=== PATIENT | female | born 1990 | race Caucasian/White ===

== ENCOUNTER 2017-07-13 01:42 | Observation (INO) ==
[2017-07-13 02:38] LABS: Bilirubin,Urine Negative (Negative); Blood,Urine Negative (Negative); Clarity,Urine Cloudy (Clear); Color,Urine Dark Yellow (Yellow); Glucose,Urine (UA) Normal (Normal); Ketones,Urine Negative (Negative); Leukocyte Esterase,Urine Negative (Negative); Nitrite,Urine Negative (Negative); Protein,Urine Trace mg/dL (Neg-Trace); Specific Gravity,Urine 1.026 (1.010-1.025); Urobilinogen,Urine Normal (Normal)
[2017-07-13 02:40] LABS: Bacteria,Urine Moderate per hpf (None-Few); Squamous Epithelial Cell,Urine Many per lpf (None-Few)
[2017-07-13 02:53] LABS: Hyaline Casts,Urine None Seen per lpf (None-Few); Mucus,Urine Few (Few); RBC,Urine 0-3 per hpf (0-3)
[2017-07-13 04:07] LABS: Amphetamine Screen,Urine Negative ng/mL (Cutoff=1000); Barbiturate Screen,Urine Negative ng/mL (Cutoff=200); Benzodiazepines Screen,Urine Negative ng/mL (Cutoff=200); Cannabinoid Screen,Urine Negative ng/mL (Cutoff = 50); Cocaine Screen,Urine Negative ng/mL (Cutoff= 300); Opiate Screen,Urine Negative ng/mL (Cutoff=300); Phencyclidine Screen,Urine Negative ng/mL (Cutoff=25)
--- NOTE | 2017-07-13 05:41 | OB/GYN Progress Note ---
Date of Encounter: 07/13/17 Time of Encounter: 05:35 - Assessment and Plan (1) 30 weeks gestation of Status: Acute Nitrazine - UA - Return for worsening symptoms Follow up in office as scheduled OK to discharge home (2) NST (non-stress test) reactive on surveillance Status: Acute Subjective - Subjective Principal diagnosis: back pain Interval history: Ms. Chauhan is a 26 year old at 30 weeks + 3 days with an EDB of dated by early US who presents to L&D via ED with c/o "I feel like I'm dilated." She also reports low back pain. She endorses good FM and denies contractions, LOF, vaginal bleeding. Antepartum ROS: movement normal, contractions, no loss of fluid, no vaginal bleeding Objective - Vital Signs Vital Signs: Intake and Output 07/12/17 07/12/17 07/13/17 15:59 23:59 07:59 Other: Weight 78.2 kg Patient Weight 07/13/17 23:59 Weight 78.2 kg - Exam FHR: category 1 Auscultation: bilateral: normal Abdomen: Present: normal appearance, soft, gravid Uterus: Present: normal, firm Cervical dilation: 0 Cervix effacement: 30 station: -4 - Labs Labs: Abnormal lab results Urine Clarity Cloudy (Clear) A 07/13/17 02:00 Ur Specific Franklin 1.026 (1.010-1.025) H 07/13/17 02:00 Urine Microscopic WBC 5-15 per hpf (0-3) H 07/13/17 02:00 Ur Squamous Epith Cells Many per lpf (None-Few) H 07/13/17 02:00 Urine Bacteria Moderate per hpf (None-Few) H 07/13/17 02:00
== END 2017-07-13 03:11 | disposition home or self-care (01) ==
LOC: 1NENULAB
PROVIDERS: ADMIT Advanced Practice Midwife; ATTEND Advanced Practice Midwife

== ENCOUNTER 2017-08-06 09:50 | Observation (INO) ==
--- NOTE | 2017-08-06 11:05 | OB/GYN Progress Note ---
Date of Encounter: 08/06/17 Time of Encounter: 11:03 - Assessment and Plan (1) 33 weeks gestation of Current Visit: Yes Status: Acute 27 y/o @ 33+ weeks presents to the office because of possible leaking of fluid that she encountered this AM, she feels good FM, no bleeding, has palak thomas, SSE done and no pooling, no ferning, cervix closed, UA sent, NST reactive, ok for discharge Objective - Vital Signs Vital Signs: Intake and Output 08/05/17 08/06/17 08/06/17 23:59 07:59 15:59 Other: Weight 77.927 kg Patient Weight 08/06/17 23:59 Weight 77.927 kg
[2017-08-06 11:29] LABS: Bilirubin,Urine Negative (Negative); Blood,Urine Negative (Negative); Clarity,Urine Turbid (Clear); Color,Urine Dark Yellow (Yellow); Glucose,Urine (UA) Normal (Normal); Ketones,Urine Negative (Negative); Leukocyte Esterase,Urine Trace (Negative); Nitrite,Urine Negative (Negative); Protein,Urine Trace mg/dL (Neg-Trace); Specific Gravity,Urine 1.029 (1.010-1.025); Urobilinogen,Urine Normal (Normal)
[2017-08-06 11:32] LABS: Bacteria,Urine Many per hpf (None-Few); Squamous Epithelial Cell,Urine Many per lpf (None-Few); WBC,Urine 15-30 per hpf (0-3)
[2017-08-06 12:02] LABS: Calcium Oxalate Crystals,Urine Present
[2017-08-06 12:03] LABS: RBC,Urine 0-3 per hpf (0-3)
[2017-08-06 12:27] LABS: Amphetamine Screen,Urine Negative ng/mL (Cutoff=1000); Barbiturate Screen,Urine Negative ng/mL (Cutoff=200); Benzodiazepines Screen,Urine Negative ng/mL (Cutoff=200); Cannabinoid Screen,Urine Negative ng/mL (Cutoff = 50); Cocaine Screen,Urine Negative ng/mL (Cutoff= 300); Opiate Screen,Urine Negative ng/mL (Cutoff=300); Phencyclidine Screen,Urine Negative ng/mL (Cutoff=25)
== END 2017-08-06 11:39 | disposition home or self-care (01) ==
LOC: 1NENULAB
PROVIDERS: ADMIT Student in an Organized Health Care Education/Training Program; ATTEND Student in an Organized Health Care Education/Training Program

== ENCOUNTER 2017-09-07 23:58 | Observation (INO) ==
[2017-09-08 00:42] LABS: Bilirubin,Urine Negative (Negative); Blood,Urine Negative (Negative); Clarity,Urine Cloudy (Clear); Color,Urine Yellow (Yellow); Glucose,Urine (UA) Normal (Normal); Ketones,Urine Negative (Negative); Leukocyte Esterase,Urine Negative (Negative); Nitrite,Urine Negative (Negative); PH,Urine 6.5 pH Units (5.0-8.0); Protein,Urine Negative (Neg-Trace); Specific Gravity,Urine 1.023 (1.010-1.025); Urobilinogen,Urine Normal (Normal)
[2017-09-08 00:44] LABS: Bacteria,Urine Few per hpf (None-Few); Hyaline Casts,Urine None Seen per lpf (None-Few); Squamous Epithelial Cell,Urine Many per lpf (None-Few)
[2017-09-08 00:58] LABS: Amorphous Sediment,Urine Few (Few); RBC,Urine 0-3 per hpf (0-3)
[2017-09-08 02:36] LABS: Amphetamine Screen,Urine Negative ng/mL (Cutoff=1000); Barbiturate Screen,Urine Negative ng/mL (Cutoff=200); Benzodiazepines Screen,Urine Negative ng/mL (Cutoff=200); Cannabinoid Screen,Urine Negative ng/mL (Cutoff = 50); Cocaine Screen,Urine Negative ng/mL (Cutoff= 300); Opiate Screen,Urine Negative ng/mL (Cutoff=300); Phencyclidine Screen,Urine Negative ng/mL (Cutoff=25)
--- NOTE | 2017-09-08 07:04 | OB/GYN Progress Note ---
Date of Encounter: 09/08/17 Time of Encounter: 01:20 - Assessment and Plan (1) 38 weeks gestation of Status: Acute (2) False labor Status: Acute Discharge home with precautions. Follow-up as scheduled. Subjective - Subjective Interval history: 27 year-old presenting at 38w4d wtih c.o leaking. She was evaluated per field staff manager and had negative nitrazine test. She made no cervical change and had no additional leaking in triage. Antepartum ROS: loss of fluid, movement normal, contractions, no vaginal bleeding Objective - Exam FHR: category 1 FHR comments: NST reactive - Labs Labs: Abnormal lab results Urine Clarity Cloudy (Clear) A 09/08/17 00:30 Urine Microscopic WBC 3-5 per hpf (0-3) H 09/08/17 00:30 Ur Squamous Epith Cells Many per lpf (None-Few) H 09/08/17 00:30
== END 2017-09-08 01:37 | disposition home or self-care (01) ==
LOC: 1NENULAB
PROVIDERS: ADMIT Registered Nurse; ATTEND Registered Nurse

== ENCOUNTER 2017-09-13 07:45 | Observation (INO) ==
--- NOTE | 2017-09-13 11:30 | Discharge Summary ---
Date of Encounter: 09/13/17 Time of Encounter: 11:30 - Discharge Diagnosis (1) 39 weeks gestation of Priority: Secondary Status: Acute Comments: admitted for observation (2) NST (non-stress test) reactive on surveillance Priority: Secondary Status: Acute Comments: baseline 135 bpm moderate variability +15x15 accels no decels noted. Cat. 1 tracing. - Discharge Medications Home Medications: Vit/Iron Fumarate/FA [ Tablet] 1 tab PO DAILY 07/13/17 [History ] Allergies/Adverse Reactions: 3 Allergy/AdvReac Type Severity Reaction Status Date / Time Procaine [From Novocain] Allergy See Verified 07/13/17 02:23 Comments Date of admission: 09/13/17 10:37 Primary care physician: PCP NONE Discharging clinician: Kristina Ramos Anticipated date of discharge: 09/13/17 - Patient Status Disposition: Home, Self-Care Condition: Good Functional capacity at discharge: independent ambulation - Discharge Instructions Follow Up With: NONE,PCP [Primary Care Provider] - Nicole Vaz MD [Partnered Physician] - - Diet and Activity Activity: increase activity as tolerated Diet: regular diet Hospital Course FLOW WORKER Time Attestation: Total time spent providing and/or coordinating discharge services: Time Spent: Less than 30 minutes Exam - Other Additional findings: Patient seen and assessed by RN. Dr. Vaz at patient's bedside to discuss rescheduling c/s. Patient will come in at 0745. NST reactive. Baseline 1135 bpm moderate variability +15x15 accels no decels noted. Irregular contractions. Cat. 1 tracing. - VTE Reasons for not Prescribing Prophylaxis: Treatment not Indicated - Low risk for VTE
== END 2017-09-13 11:35 | disposition home or self-care (01) ==
LOC: 1NENULAB 10:37 → INTOOBSV 10:37
PROVIDERS: ADMIT Student in an Organized Health Care Education/Training Program; ATTEND Student in an Organized Health Care Education/Training Program

== ENCOUNTER 2017-09-15 05:44 | Inpatient (IN) ==
[2017-09-15] MEDS ORDERED: Famotidine 20 MG/2 ML VIAL IVP PRN ×2 (06:03→11:58)
[2017-09-15] MEDS ORDERED: Naloxone 0.4 MG/ML INJ IVP PRN ×2 (06:03→11:58)
[2017-09-15] MEDS ORDERED: Metoclopramide 10 MG/2 ML VIAL IVP PRN ×2 (06:03→11:58)
[2017-09-15] MEDS ORDERED: Ringers Solution, Lactated 1,000 ML IVC ONE (06:04)
[2017-09-15] MEDS ORDERED: ceFAZolin 2,000 MG in Water for inj. (sterile) 20 ML 10 ML IVP ONE (06:05)
[2017-09-15] MEDS ORDERED: Ringers Solution, Lactated 1,000 ML IVC SCH (06:15)
[2017-09-15 06:36] LABS: Basophils % 0.3 %; Eosinophils # 0.2 K/mcL (0.0-0.6); Eosinophils % 1.1 %; Hematocrit 34.9 % (35.3-44.9); Immature Granulocytes % 0.7 % (0-4); Lymphocytes # 3.5 K/mcL (0.6-4.6); Mean Corpuscular HGB Conc 34.4 g/dL (31.6-35.5); Mean Corpuscular Hemoglobin 32.6 pg (28.0-33.3); Mean Corpuscular Volume 94.8 fL (83.0-100.0); Mean Platelet Volume 10.5 fL (9.4-12.4); Monocytes # 1.1 K/mcL (0.0-1.3); Monocytes % 7.3 %; Neutrophils # 10.2 K/mcL (1.6-8.9); Platelet Count 267 K/mcL (140-400); Red Blood Count 3.68 M/mcL (3.82-4.97); Red Cell Distribution Width 12.3 % (11.5-14.5); Segmented Neutrophils % 67.6 %
[2017-09-15 06:47] LABS: Amphetamine Screen,Urine Negative ng/mL (Cutoff=1000); Barbiturate Screen,Urine Negative ng/mL (Cutoff=200); Benzodiazepines Screen,Urine Negative ng/mL (Cutoff=200); Cannabinoid Screen,Urine Negative ng/mL (Cutoff = 50); Cocaine Screen,Urine Negative ng/mL (Cutoff= 300); Opiate Screen,Urine Negative ng/mL (Cutoff=300); Phencyclidine Screen,Urine Negative ng/mL (Cutoff=25)
[2017-09-15] MEDS ORDERED: CeFAZolin Premix DUPLEX 2,000 MG/50 ML BAG IVPB ONE (07:00)
--- NOTE | 2017-09-15 07:27 | OB/GYN History & Physical ---
Date of Encounter: 09/15/17 Time of Encounter: 07:25 Assessment and Plan (1) 39 weeks gestation of Current visit: No Status: Acute Planning for repeat section. (2) Previous delivery affecting Current visit: Yes Status: Acute (3) Tobacco use affecting in third trimester, antepartum Current visit: Yes Status: Acute History of Present Illness Chief complaint: repeact c/s HPI: Ms. Chauhan is a 27 year old female at 39w4d that presents to L&D for repeat section. No LOF or VB. Good movement. complicated by tobacco use. Labs: Blood type A+ HIV nonreactive T. Pallidum negative Rubella positive Varicella Negative Hepatitis B nonreactive Past Med Surg Social Fam HX - Past Medical History Medical history: no medical history Psychiatric history: ADHD, depression - Past Surgical History Surgical History: Additional surgical history: 07/19/2015 - Social History Smoking Status: Current every day smoker Packs per day: 1 Smokeless Tobacco Status: No Alcohol use: none Drug use: none - Family History Father Family Member Ethnicity: Non- Living Status: Still Living Mother Adopted: No Family Member Ethnicity: Non- Living Status: Still Living Hx Family Cardiac Disorders: No Hx Family Respiratory Disorders: No Hx Family Cancer: Yes Hx Family GI Disorders: No Hx Family Endocrine Disorder: No Hx Family Neuromuscular Disorders: No Hx Family Neurologic Disorders: No Hx Family HEENT Disorders: No Hx Family Autoimmune Disorders: No Obstetrical History - Pregnancies : 6 Para: 1 Term: 1 : 0 Ab's: 4 Livin Medications and Allergies Vit/Iron Fumarate/FA [ Tablet] 1 tab PO DAILY 07/13/17 [History ] 3 Allergy/AdvReac Type Severity Reaction Status Date / Time Procaine [From Novocain] Allergy See Verified 07/13/17 02:23 Comments Review of System OB All systems PM: reviewed and no additional remarkable complaints except as stated Exam - Constitutional Constitutional: well developed, well nourished, no acute distress, average body habitus - HEENT HEENT: Normocephaly, Mucus Membranes Moist - Neck Neck exam: full ROM, normal inspection - Lungs Respiratory exam: CTAB - Cardiovascular Cardiovascular exam: RRR - Abdomen Abdomen: Present: bowel sounds normal, gravid, non tender - Extremities Extremities exam: normal inspection Deep Tendon Reflex Grade: 2+ Normal Results Result Diagrams: 09/15/17 06:07 Abnormal lab results WBC 15.1 K/mcL (4.3-11.1) H 09/15/17 06:07 RBC 3.68 M/mcL (3.82-4.97) L 09/15/17 06:07 Hct 34.9 % (35.3-44.9) L 09/15/17 06:07 Neutrophils # 10.2 K/mcL (1.6-8.9) H 09/15/17 06:07 All other labs normal. - Attending Attestation I have reviewed this document and I agree- Dr Vaz
[2017-09-15] MEDS ORDERED: Morphine Sulfate/PF 5mg/10mL Vial ONE (07:38)
[2017-09-15] MEDS ORDERED: *HR* FentaNYL (PF) 100 MCG/2 ML VIAL ONE (07:38)
[2017-09-15] MEDS ORDERED: Lidocaine -MPF 2% 5 ML VIAL ONE (07:38)
[2017-09-15] MEDS ORDERED: *HR* Phenylephrine 10 MG/ML VIAL ONE (07:38)
[2017-09-15] MEDS ORDERED: *HR* Oxytocin 10 UNIT/ML VIAL IM ONE ×2 (08:20→09:06)
[2017-09-15] MEDS ORDERED: Acetaminophen IV 1,000 MG/100 ML INFUS..BTL IVPB ONE (08:30)
[2017-09-15] MEDS ORDERED: *HR* OxyCODONE Immed Rel 5 MG TABLET PO PRN (08:30)
[2017-09-15] MEDS ORDERED: *HR* FentaNYL (PF) 100 MCG/2 ML VIAL IVP PRN (08:30)
[2017-09-15] MEDS ORDERED: Ondansetron 4 MG/2 ML VIAL IVP PRN ×2 (08:30→11:58)
--- NOTE | 2017-09-15 08:36 | Anesthesia Evaluation PreOp ---
Date of Encounter: 09/15/17 Time of Encounter: 07:30 - Past History Planned Operation: C section Cardiac History: Denies any Significant Hx Pulmonary History: Smoker (1 ppd), Pack/yr (7) [employer] History: Denies Any Significant HX Other Medical History: GERD Anesthesia History: No Prior Anesthetic Complications, Past Anesthesia (c/s) : Yes Test: Positive Alcohol Use: none Drug use: none Medications and Allergies Vit/Iron Fumarate/FA [ Tablet] 1 tab PO DAILY 07/13/17 [History ] 3 Allergy/AdvReac Type Severity Reaction Status Date / Time Procaine [From Novocain] Allergy See Verified 07/13/17 02:23 Comments - Meds/Allergy Pre-op Review Medications Reviewed: Yes Allergies Reviewed: Yes Beta Blockers on Current Med List: No Anesthesia Results - Labs 09/15/17 06:07 Anesthesia Exam 106/70 60 16 fht 122 Height: 5'6" Weight: 82 k NPO (# of Hours): 8 Pain Scale: 3 Pain Scale Used: Numeric (1 - 10) - HEENT Pupil (Motor): Pupils equal Mallampati: II Teeth: Normal Oral Opening: Greater than 3 - [employer] LOC: Oriented [employer] Motor: Normal RUE, Normal LUE, Normal RLE, Normal LLE, Normal Face [employer] Sensory: Normal: RUE, LUE, RLE, LLE, Face - Cardiac Rhythm: Regular Murmur: None - Pulmonary Breath Sounds: bilateral Clear Respiratory Effort: Symmetrical Anesthesia Assess/Plan ASA Score: 2 Modified Winthrop Scale for Level of Consciousness: Cooperative, oriented, and tranquil Anesthetic Plan: Regional Autologous Blood: No Monitoring Plan: Standard Monitors Recovery Plan: PACU (risks discussed, questions answered, consented)
--- NOTE | 2017-09-15 08:40 | Anesthesia Procedures ---
Date of Encounter: 09/15/17 Time of Encounter: 08:38 Procedures: Anesthesia - Epidural/Spinal Patient ID/Chart reviewed: Yes Patient examined: Yes OB Eval: Gestational age: 39.4 OB Eval: : 6 OB Eval: Hx Para: 1 OB Eval: Dilated at (cm): 2 OB Eval: Contractions: Non-stressed pattern Consent Obtained: Yes Supplemental Oxygen: None/Room Air Site Prep: Aseptic Technique, 0.5% Chlorhexidine/Alcohol Patient position: upright Local Anesthetic: Lidocaine 1% Amount of Local Anesthetic used: 3 Interspace Used: L2-L3 Loss of Resistance (BABAK): No Blood: No CSF: Yes Paresthesia: No Spinal Dose: Marcaine 12.5, duramorph 0.3mg fentanyl 10 mcg Procedure: aseptic, csf x4 quads, tolerated well, effective Vitals + FHT's: 106/65 68 fht 123
[2017-09-15] MEDS ORDERED: Dexamethasone 4 MG/ML VIAL ONE (08:57)
[2017-09-15] MEDS ORDERED: Ondansetron 4 MG/2 ML VIAL ONE (08:57)
[2017-09-15] MEDS ORDERED: Sennosides 8.6 MG TABLET PO PRN ×2 (09:21→11:58)
[2017-09-15] MEDS ORDERED: Simethicone 80 MG TAB.CHEW PO PRN ×2 (09:21→11:58)
[2017-09-15] MEDS ORDERED: Acetaminophen 325 MG TABLET PO PRN ×2 (09:21→11:58)
[2017-09-15] MEDS ORDERED: Ibuprofen 600 MG TABLET PO PRN (09:21)
[2017-09-15] MEDS ORDERED: *HR* OxyCODONE/APAP 5/325 TABLET PO PRN (09:21)
[2017-09-15] MEDS ORDERED: Oxytocin 20 units/ LR 1000 mL 20 UNIT/1,000 ML BAG IVC SCH (09:30)
--- NOTE | 2017-09-15 09:32 | OB/GYN Procedure Note ---
Section - Date of procedure: 09/15/17 Preop diagnosis: desires repeat Post-op diagnosis: same Procedure: repeat low transverse Surgeon: Nicole Vaz Quantitated Blood Loss: 400 Was there an pastoral assistant present: Yes Cupola Patcher: Talon Eric Anesthesia Type: Spinal section complications: none Disposition: L&D Recovery Room Specimens: Placenta, Cord segment - (s) A Delivery Date: 09/15/17 Delivery Time: 08:45 Presentation: vertex Position: OA Route of delivery: other Gender: Male Viability: Viable Pounds: 7 Ounces: 4 Gram Weight: 3300 kg at 1 minute: 8 at 5 minutes: 9 Placenta: complete extraction Cord: 3 umbilical vessels - Narrative Narrative: The patient was taken to the operating room where spinal anesthesia was administered without difficulty. The patient was prepped and draped in the usual sterile fashion in the dorsal supine position with a leftward tilt. A Pfannenstiel skin incision was made with the scalpel and carried through to the underlying layer of fascia using the Bovie. The fascia was incised in the midline and extended laterally using Harden scissors. Husam clamps were used to elevate the superior aspect of the fascial incision, which was elevated, and the underlying rectus muscles were dissected off bluntly and using Harden scissors. Attention was then turned to the inferior aspect of the fascial incision, which in similar fashion was grasped with Husam clamps, elevated, and the underlying rectus muscles were dissected off bluntly and using the Bovie. The rectus muscles were dissected in the midline. The peritoneum was identified and entered using Metzenbaum scissors; this incision was extended superiorly and inferiorly with good visualization of the bladder. The bladder blade was inserted. The vesicouterine peritoneum was identified and entered sharply using Metzenbaum scissors. This incision was extended laterally and the bladder flap was created digitally. The bladder blade was reinserted. The lower uterine segment was incised in a transverse fashion using the scalpel and extended using bandage scissors as well as manual traction. Clear fluid was noted. The was subsequently delivered without difficulty. The nose and mouth were bulb suctioned. The cord was clamped and cut. The infant was subsequently handed to the awaiting nursery nurse. The placenta was delivered spontaneously intact with a three-vessel cord noted. The uterus was exteriorized and cleared of all clots and debris. The uterine incision was repaired in 2 layers using 0 vicryl sutures. Hemostasis was visualized. The uterus was returned to the abdomen. The uterine incision was reexamined and it was noted to be hemostatic. The fascia was closed with 0 Vicryl suture, the subcutaneous layer was closed with 3-0 vicryl suture, and the skin was closed with 4-0 vicryl. Sponge, lap, and instrument counts were correct x2. The patient was stable at the completion of the procedure and was subsequently transferred to the recovery room in stable condition.
[2017-09-15] MEDS: Oxytocin 20 units/ LR 1000 mL 20 UNIT/1,000 ML BAG IVC SCH (12:22)
[2017-09-15] MEDS: Nicotine 14 MG PATCH.TD24 TD SCH (21:28)
[2017-09-15] MEDS: *HR* OxyCODONE/APAP 5/325 TABLET PO PRN (23:53)
[2017-09-16] MEDS: Oxytocin 20 units/ LR 1000 mL 20 UNIT/1,000 ML BAG IVC SCH (03:32)
[2017-09-16 04:34] LABS: Basophils % 0.2 %; Eosinophils # 0.1 K/mcL (0.0-0.6); Eosinophils % 0.5 %; Hematocrit 32.2 % (35.3-44.9); Hemoglobin 10.5 g/dL (11.5-15.4); Immature Granulocytes % 0.6 % (0-4); Lymphocytes # 3.2 K/mcL (0.6-4.6); Lymphocytes % 20.6 %; Mean Corpuscular HGB Conc 32.6 g/dL (31.6-35.5); Mean Corpuscular Hemoglobin 31.3 pg (28.0-33.3); Mean Corpuscular Volume 96.1 fL (83.0-100.0); Mean Platelet Volume 10.5 fL (9.4-12.4); Monocytes # 1.3 K/mcL (0.0-1.3); Monocytes % 8.3 %; Neutrophils # 10.9 K/mcL (1.6-8.9); Platelet Count 240 K/mcL (140-400); Red Blood Count 3.35 M/mcL (3.82-4.97); Red Cell Distribution Width 12.3 % (11.5-14.5); Segmented Neutrophils % 69.8 %
[2017-09-16] MEDS: Ibuprofen 600 MG TABLET PO PRN ×3 (06:09→23:00)
[2017-09-16] MEDS: *HR* OxyCODONE/APAP 5/325 TABLET PO PRN ×3 (06:09→23:00)
[2017-09-16] MEDS: Nicotine 14 MG PATCH.TD24 TD SCH (07:48)
[2017-09-16] MEDS: Prenatal Vit/FA 1 EACH TABLET PO SCH (07:48)
[2017-09-16] MEDS ORDERED: NON-FORMULARY MEDICATION 1 EACH EACH (Prenatal Vit/Iron Fumarate/Fa [Prenatal Tablet] 1 TA PO SCH (09:00)
[2017-09-16] MEDS ORDERED: Prenatal Vit/FA 1 EACH TABLET PO SCH (09:00)
--- NOTE | 2017-09-16 11:02 | OB/GYN Progress Note ---
Date of Encounter: 09/16/17 Time of Encounter: 11:00 - Assessment and Plan (1) S/P section Current Visit: Yes Status: Acute Continue routine care as needed Potential for discharge home tomorrow (2) anemia Current Visit: Yes Status: Acute Continue iron supplementation (3) Tubal ligation status Current Visit: Yes Status: Acute Subjective - Subjective Principal diagnosis: s/p RLTCS Interval history: Feeling well. Cramping minimal, using ibuprofen. Breast and bottlefeeding. Voiding without difficulty. Passing flatus, no BM yet. Tolerating regular diet. Difficulty verbalizing to maid housekeeper. Speech is slurred. Apparently this is her normal baseline. Patient reports: appetite normal, voiding normally, pain well controlled, no ambulating normally : doing well, in NICU (transported to nursery at request of maid housekeeper), bottle feeding Objective - Vital Signs Latest vital signs: Vital Signs Temp Pulse Pulse Resp BP Pulse Ox 09/16/17 07:50 98.2 F 64 16 104/66 09/16/17 03:46 97.5 F L 62 18 90/43 97 09/16/17 00:00 98.5 F 87 16 109/71 100 09/15/17 19:15 98.3 F 85 18 105/51 97 09/15/17 16:15 97.6 F 59 16 92/45 96 09/15/17 15:59 59 16 09/15/17 13:59 97.5 F L 64 16 89/48 95 09/15/17 12:30 97.7 F 68 16 95/48 09/15/17 11:45 97.5 F L 81 16 104/68 Intake and Output 09/15/17 09/16/17 09/16/17 23:59 07:59 15:59 Intake Total 1000 / 1000 500 / 500 Output Total 300 / 300 700 / 700 Balance 700 / 700 -200 / -200 Intake: IV Fluids 1000 / 1000 Pitocin 20 unit In 1,000 ml @ 1000 / 1000 125 mls/hr IVC .Q8H SHAYY Rx#: [id number] Oral 500 / 500 Output: Urine 200 / 200 Catheter 300 / 300 500 / 500 Urethral (Solano) 500 / 500 Other: Weight 81.012 kg Patient Weight 09/16/17 23:59 Weight 81.012 kg - Exam Lungs: bilateral: normal Chest: Normal S1, Normal S2 Extremities: Present: normal, edema Abdomen: Present: normal appearance, soft Uterus: Present: normal, firm Fundal Height: 0 (midline) - Labs Labs: Laboratory Results - last 24 hr 09/16/17 04:06 WBC 15.7 H RBC 3.35 L Hgb 10.5 L D Hct 32.2 L MCV 96.1 MCH 31.3 MCHC 32.6 RDW 12.3 Plt Count 240 MPV 10.5 Immature Gran % 0.6 Seg Neutrophils % 69.8 Lymphocytes % 20.6 Monocytes % 8.3 Eosinophils % 0.5 Basophils % 0.2 Neutrophils # 10.9 H Lymphocytes # 3.2 Monocytes # 1.3 Eosinophils # 0.1 Basophils # 0.0 - Allied health notes Allied health notes reviewed: social work (Lynn to see patient today.)
[2017-09-17] MEDS: *HR* OxyCODONE/APAP 5/325 TABLET PO PRN ×2 (03:48→07:56)
[2017-09-17] MEDS: Prenatal Vit/FA 1 EACH TABLET PO SCH (07:55)
[2017-09-17] MEDS: Nicotine 14 MG PATCH.TD24 TD SCH (07:55)
[2017-09-17] MEDS: Ibuprofen 600 MG TABLET PO PRN (07:56)
[2017-09-17 08:09] VITALS: BP 121/84
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
== END 2017-09-17 11:40 | disposition home or self-care (01) | DRG 540 ==
LOC: 1NENULAB 05:44 → 1NENUOBS 09:22
PROVIDERS: ADMIT Student in an Organized Health Care Education/Training Program; ATTEND Student in an Organized Health Care Education/Training Program

== ENCOUNTER → 2020-02-05 21:10 | Observation (INO) ==
[~2020-02-05 21:10] MED LIST: FLU Vac QV 20-21 (6Month+)/PF 0.5 ML SYRINGE IM ONE
== END | disposition home or self-care (01) ==
LOC: 1NENULAB
PROVIDERS: ADMIT Student in an Organized Health Care Education/Training Program; ATTEND Student in an Organized Health Care Education/Training Program

== ENCOUNTER 2020-03-26 05:32 | Inpatient (IN) ==
[2020-03-26] MEDS ORDERED: Famotidine 20 MG/2 ML VIAL IVP ONE (05:50)
[2020-03-26] MEDS ORDERED: Oxytocin 20 units/ LR 1000 mL 20 UNIT/1,000 ML BAG IVC ONE (05:50)
[2020-03-26] MEDS ORDERED: Metoclopramide 10 MG/2 ML VIAL IVP ONE (05:50)
[2020-03-26] MEDS ORDERED: CeFAZolin 2,000 MG/50 ML BAG IVPB ONE (05:50)
[2020-03-26] MEDS ORDERED: Ringers Solution, Lactated 1,000 ML IVC SCH ×2 (06:00→11:30)
[2020-03-26] MEDS ORDERED: Oxytocin 20 units/ LR 1000 mL 20 UNIT/1,000 ML BAG IVC SCH ×2 (06:00→11:30)
[2020-03-26 06:25] LABS: Basophils % 0.3 %; Eosinophils # 0.2 K/mcL (0.0-0.6); Eosinophils % 1.1 %; Hemoglobin 10.9 g/dL (11.5-15.4); Immature Granulocytes % 0.7 % (0-4); Mean Corpuscular HGB Conc 32.1 g/dL (31.6-35.5); Mean Corpuscular Hemoglobin 29.4 pg (28.0-33.3); Mean Corpuscular Volume 91.6 fL (83.0-100.0); Mean Platelet Volume 10.3 fL (9.4-12.4); Monocytes # 1.3 K/mcL (0.0-1.3); Monocytes % 9.1 %; Neutrophils # 9.3 K/mcL (1.6-8.9); Platelet Count 344 K/mcL (140-400); Red Blood Count 3.71 M/mcL (3.82-4.97); Red Cell Distribution Width 12.5 % (11.5-14.5); Segmented Neutrophils % 63.8 %; White Blood Count 14.6 K/mcL (4.3-11.1)
[2020-03-26] MEDS ORDERED: *HR* FentaNYL (PF) 100 MCG/2 ML VIAL ONE (06:26)
[2020-03-26] MEDS ORDERED: *HR* Morphine Sulfate/PF 10 MG/10 ML AMPUL ONE (06:26)
[2020-03-26 06:27] LABS: Lymphocytes # 3.7 K/mcL (0.6-4.6)
[2020-03-26] MEDS ORDERED: *HR* Phenylephrine 10 MG/ML VIAL ONE (06:27)
[2020-03-26] MEDS: Ringers Solution, Lactated 1,000 ML IVC ONE ×2 (06:32→18:05)
[2020-03-26 07:14] LABS: Adenovirus Not Detected (Not Detect); Bordetella Pertussis Not Detected (Not Detect); Chlamydophila pneumoniae Not Detected (Not Detect); Coronavirus 229E Not Detected (Not Detect); Coronavirus HKU1 Not Detected (Not Detect); Coronavirus NL63 Not Detected (Not Detect); Coronavirus OC43 Not Detected (Not Detect); Human Metapneumovirus Not Detected (Not Detect); Human Rhinovirus/Enterovirus Not Detected (Not Detect); Influenza A Subtype 2009 H1 Not Detected (Not Detect); Influenza B Not Detected (Not Detect); Mycoplasma pneumoniae Not Detected (Not Detect); Parainfluenza Virus 1 Not Detected (Not Detect); Parainfluenza Virus 2 Not Detected (Not Detect); Parainfluenza Virus 3 Not Detected (Not Detect); Parainfluenza Virus 4 Not Detected (Not Detect); Respiratory Syncytial Virus Not Detected (Not Detect); SARS-CoV-2 Not Detected (Not Detect)
[2020-03-26] MEDS ORDERED: Ondansetron 4 MG/2 ML VIAL ONE (08:30)
[2020-03-26] MEDS ORDERED: Acetaminophen IV 1,000 MG/100 ML BAG ONE (08:34)
[2020-03-26] MEDS ORDERED: Ringers Solution, Lactated 1,000 ML ONE (08:53)
[2020-03-26] MEDS ORDERED: *HR* Oxytocin 10 UNIT/ML VIAL IM ONE (08:53)
[2020-03-26] MEDS ORDERED: Ketorolac 30 MG/ML VIAL ONE (09:33)
[2020-03-26 11:05] LABS: Amphetamine Screen,Urine Negative ng/mL (Cutoff=1000); Barbiturate Screen,Urine Negative ng/mL (Cutoff=200); Benzodiazepines Screen,Urine Negative ng/mL (Cutoff=200); Cannabinoid Screen,Urine Negative ng/mL (Cutoff = 50); Cocaine Screen,Urine Negative ng/mL (Cutoff= 300); Opiate Screen,Urine Negative ng/mL (Cutoff=300); Phencyclidine Screen,Urine Negative ng/mL (Cutoff=25)
[2020-03-26] MEDS ORDERED: Sennosides 8.6 MG TABLET PO PRN (11:30)
[2020-03-26] MEDS ORDERED: Simethicone 80 MG TAB.CHEW PO PRN (11:30)
[2020-03-26] MEDS ORDERED: Ondansetron 4 MG/2 ML VIAL IVP PRN (11:30)
[2020-03-26] MEDS ORDERED: Rho Immune Globulin 1,500 UNIT SYRINGE IM ONE (11:30)
[2020-03-26] MEDS ORDERED: Metoclopramide 10 MG/2 ML VIAL IVP PRN (11:30)
[2020-03-26] MEDS: *HR* OxyCODONE/APAP 5/325 TABLET PO PRN ×3 (12:00→21:26)
[2020-03-26] MEDS: Ibuprofen 600 MG TABLET PO PRN (15:29)
[2020-03-26] MEDS ORDERED: Ringers Solution, Lactated 500 ML IVC ONE (17:59)
[2020-03-26] MEDS: Nicotine 14 MG PATCH.TD24 TD SCH (21:27)
[2020-03-27] MEDS: Ibuprofen 600 MG TABLET PO PRN ×2 (02:59→17:39)
[2020-03-27] MEDS: *HR* OxyCODONE/APAP 5/325 TABLET PO PRN ×4 (03:00→19:56)
[2020-03-27 04:18] LABS: Basophils % 0.3 %; Eosinophils # 0.2 K/mcL (0.0-0.6); Eosinophils % 1.4 %; Hematocrit 35.6 % (35.3-44.9); Hemoglobin 11.1 g/dL (11.5-15.4); Immature Granulocytes % 0.6 % (0-4); Lymphocytes # 2.9 K/mcL (0.6-4.6); Lymphocytes % 22.4 %; Mean Corpuscular HGB Conc 31.2 g/dL (31.6-35.5); Mean Corpuscular Hemoglobin 29.6 pg (28.0-33.3); Mean Corpuscular Volume 94.9 fL (83.0-100.0); Monocytes % 7.4 %; Neutrophils # 8.9 K/mcL (1.6-8.9); Platelet Count 354 K/mcL (140-400); Red Blood Count 3.75 M/mcL (3.82-4.97); Red Cell Distribution Width 12.6 % (11.5-14.5); Segmented Neutrophils % 67.9 %
[2020-03-27] MEDS: Prenatal Vit/FA 1 EACH TABLET PO SCH (08:11)
[2020-03-27] MEDS ORDERED: PRENATAL VITAMIN PO SCH (09:00)
[2020-03-27] MEDS: Nicotine 14 MG PATCH.TD24 TD SCH (10:00)
[2020-03-28] MEDS: Ibuprofen 600 MG TABLET PO PRN ×4 (01:07→21:55)
[2020-03-28] MEDS: *HR* OxyCODONE/APAP 5/325 TABLET PO PRN ×5 (03:39→22:00)
[2020-03-28] MEDS: Prenatal Vit/FA 1 EACH TABLET PO SCH (08:09)
[2020-03-29] MEDS: *HR* OxyCODONE/APAP 5/325 TABLET PO PRN ×2 (02:47→06:57)
[2020-03-29] MEDS: Ibuprofen 600 MG TABLET PO PRN (05:34)
[2020-03-29] MEDS: Prenatal Vit/FA 1 EACH TABLET PO SCH (07:48)
[2020-03-29 07:56] VITALS: BP 109/68
== END 2020-03-29 11:27 | disposition home or self-care (01) | DRG 539 ==
LOC: 1NENULAB 05:32 → 1NENUOBS 11:11
PROVIDERS: ADMIT Student in an Organized Health Care Education/Training Program; ATTEND Student in an Organized Health Care Education/Training Program